=== PATIENT | male | born 1935 | race Caucasian/White ===

== ENCOUNTER 2018-05-19 06:15 | Day surgery (SDC) | payer OTHER ==
[~2018-05-19] VITALS: Ht 177.8 cm; Wt 89.8 kg
[~2018-05-19 06:15] MED LIST: ANORO ELLIPTA1 EACH IH; CINNAMON500 MG PO; GERI-HYDROLAC140 GM TP; GLUCOPHAGE500 MG PO; GLUCOTROL5 MG PO; LO-DOSE ASPIRIN81 M1 PO; MIRALAX17 GM PO; ONE DAILY1 EAC3 PO; PRECOSE50 MG PO; PROAMATINE10 MG PO; PROTONIX40 MG PO; VICTOZA 2-0.6 MG/0.1 SC; VITAMIN B-122500 MCG SL; VITAMIN D2000 UNIT PO; ZOCOR20 MG PO
[2018-05-19 07:42] VITALS: BP 151/79
[2018-05-19 10:25] VITALS: BP 137/69
[2018-05-19 11:15] VITALS: BP 141/75
== END 2018-05-19 11:23 | disposition home or self-care (01) ==
LOC: SDC 06:15
PROVIDERS: Ophthalmology
DX: H35.371 Puckering of macula, right eye (principal); H35.81 Retinal edema; I10 Essential (primary) hypertension; E11.42 Type 2 diabetes mellitus with diabetic polyneuropathy; J44.9 Chronic obstructive pulmonary disease, unspecified; Z86.19 Personal history of other infectious and parasitic diseases; Z95.0 Presence of cardiac pacemaker; Z79.84 Long term (current) use of oral hypoglycemic drugs; Z87.891 Personal history of nicotine dependence; Z88.8 Allergy status to other drugs, medicaments and biological substances
CPT/HCPCS: 82948; J0690; J0713; J3300; J7120